=== PATIENT | male | born 1995 | race Caucasian/White ===

== ENCOUNTER 2018-07-20 07:06 | Day surgery (SDC) | payer OTHER ==
[2018-07-20] VITALS (11 sets, daily range): BP systolic 116–134; BP diastolic 59–82
[~2018-07-20] VITALS: Ht 177.8 cm; Wt 79.4 kg
[~2018-07-20 07:06] MED LIST: NKM
--- NOTE | 2018-07-20 08:03 | Pre-Procedure Note/Attestation ---
Pre-Procedure Note/Attestation Complete Prior to Procedure Planned Procedure: left Procedure Narrative: eswl rirs left Indications for Procedure Pre-Operative Diagnosis: left ureteral stone Attestation I attest that I discussed the nature of the procedure; its benefits; risks and complications; and alternatives (and the risks and benefits of such alternatives ), prior to the procedure, with the patient (or the patient's legal front office representative). I attest that, if there was a reasonable possibility of needing a blood transfusion, the patient (or the patient's legal front office representative) was given the [facility] standardized written summary, pursuant to the [place] Blood Safety Act ([place] Health and Safety Code # 1645, as amended). I attest that I re-evaluated the patient just prior to the surgery and that there has been no change in the patient's H&P, except as documented below: Tuan Wheeler MD Jul 20, 2018 08:03
--- NOTE | 2018-07-20 08:28 | Anethesia Preoperative Eval ---
Anesthesia Pre-op PMH/ROS General Date of Evaluation: Jul 20, 2018 Time of Evaluation: 08:27 Anesthesiologist: Taylor Hunt CRNA ASA Score: ASA 1 Mallampati Score Class I : Soft palate, uvula, fauces, pillars visible Class II: Soft palate, uvula, fauces visible Class III: Soft palate, base of uvula visible Class IV: Only hard plate visible Mallampati Classification: Class I Surgeon: Summer Diagnosis: Renal stones Surgical Procedure: LEFT ESWL, LEFT retrograde ureteral stent placement Anesthesia History: none Family History: no anesthesia problems Allergies: Coded Allergies: No Known Allergies (Unverified , 07/20/18) Medications: see eMAR Past Medical History Cardiovascular: Denies: HTN, CAD, CO, valve dz, arrhythmia, other Pulmonary: Denies: asthma, COPD, KD, other Gastrointestinal/Genitourinary: Reports: other - LEFT ureteral stones; Denies: GERD, CRI, ESRD Neurologic/Psychiatric: Denies: dementia, CVA, depression/anxiety, TIA, other Endocrine: Denies: DM, hypothyroidism, steroids, other HEENT: Denies: cataract (L), cataract (R), glaucoma, [place] (L), [place] (R), other Hematology/Immune: Denies: anemia, DVT, bleeding disorder, other Musculoskeletal/Integumentary: Denies: OA, RA, DJD, DDD, edema, other PMH Narrative: Healthy ASA 1 with ureteral stones PSxH Narrative: [place] teeth extraction Anesthesia Pre-op Phys. Exam Physician Exam Last Vital Signs Date Time Temp Pulse Resp B/P (MAP) Pulse Ox O2 Delivery O2 Flow Rate FiO2 07/20/18 07:42 97.9 48 18 116/59 96 Room Air 97.9 Constitutional: NAD Neurologic: CN 2-12 intact Cardiovascular: RRR Respiratory: CTA Gastrointestinal: S/NT/ND Airway Exam Mallampati Score: Class I MO: full Neck: no issues TMD: > 3 FB ROM: full Teeth: intact Dentures: no upper, no lower Anesthesia Pre-op A/P Risk Assessment & Plan Assessment: ASA 1 ok to proceed Plan: LMA GA Status Change Before Surgery: Taylor Harp CRNA Jul 20, 2018 08:28
[2018-07-20] MEDS ORDERED: Midazolam 2mg/2ml Inj ONE (08:31)
[2018-07-20] MEDS ORDERED: fentaNYL 100 mcg/2 mL IV ONE (08:31)
[2018-07-20] MEDS ORDERED: Lidocaine 1% MPF 10mg/ml 5ml ONE (08:31)
[2018-07-20] MEDS ORDERED: Propofol 200mg/20ml IV ONE (08:31)
[2018-07-20] MEDS ORDERED: LR 1000ml ONE (09:00)
[2018-07-20] MEDS ORDERED: NS Irrig 4000ml IRRIG ONE (09:00)
[2018-07-20] MEDS ORDERED: NS Irrig 1000ml ONE (09:00)
[2018-07-20] MEDS ORDERED: Sterile Water Irrig 1000ml IRRIG ONE (09:00)
[2018-07-20] MEDS: Iothalamate Meglumine 60% 30ML INJ ONE (09:25)
[2018-07-20] MEDS ORDERED: Glycopyrrolate 0.2mg/ml 1ml Vial ONE (09:25)
[2018-07-20] MEDS ORDERED: Dexamethasone 4mg/ml vial ONE (09:40)
[2018-07-20] MEDS ORDERED: Ketorolac 30mg Inj ONE (09:40)
[2018-07-20] MEDS ORDERED: oxyCODONE HCL/Acetaminophen 5/325mg ORAL PRN (10:00)
--- NOTE | 2018-07-20 10:04 | Brief Operative Note ---
Immediate Post Operative Note Operative Note Pre-op Diagnosis: left ureteral stone Procedure: eswl rirs stent placement Post-op Diagnosis: same Post-op Diagnosis: same as pre-op Surgeon: puja wheeler Anesthesia: general Specimen: none Complications: none Condition: stable Fluids: 500 Implant(s) used?: No Tuan Wheeler MD Jul 20, 2018 10:04
[2018-07-20] MEDS ORDERED: D5 1/2NS 1,000 ML IV SCH (10:15)
[2018-07-20] MEDS ORDERED: Tylenol #3 tab (300mg/30mg) ORAL PRN (10:15)
[2018-07-20] MEDS ORDERED: Norco 5mg/325mg tab ORAL PRN (10:15)
[2018-07-20] MEDS ORDERED: HYDROmorphone 1mg/ml Carpuject SUBQ PRN (10:15)
--- NOTE | 2018-07-20 10:36 | Immediate Post-Op Evaluation ---
Immediate Post-Op Evalulation Immediate Post-Op Evalulation Procedure: cystoscopy, LEFT retrograde ureteral stent placment under fluroscopy Date of Evaluation: Jul 20, 2018 Time of Evaluation: 10:09 IV Fluids: LR 1200 ML Estimated Blood Loss: minimal Urinary Output: in field Blood Pressure Systolic: 134 Blood Pressure Diastolic: 74 Pulse Rate: 69 Respiratory Rate: 18 O2 Sat by Pulse Oximetry: 100 Temperature (Fahrenheit): 97.7 Pain Score (1-10): 0 Nausea: No Vomiting: No Complications none Patient Status: awake, reacts, patent, extubated Hydration Status: adequate Drug: Cefazolin 1 gm Given Within 1 Hr of Incision: Yes Time Given: 09:15 Taylor Hunt CRNA Jul 20, 2018 10:36
--- NOTE | 2018-07-20 12:35 | 48 Hour Post Anesthesia Eval ---
Post Anesthesia Evaluation Procedure: cystoscopy, LEFT retrograde ureteral stent placment under fluroscopy Date of Evaluation: Jul 20, 2018 Time of Evaluation: 11:11 Blood Pressure Systolic: 120 0: 72 Pulse Rate: 42 Respiratory Rate: 16 Temperature (Fahrenheit): 97.5 O2 Sat by Pulse Oximetry: 99 Airway: patent Nausea: No Vomiting: No Pain Intensity: 0 Hydration Status: adequate Mental Status/LOC: patient returned to baseline Follow-up Care/Observations: per surgeon Post-Anesthesia Complications: none Follow-up care needed: ready to discharge Taylor Hunt CRNA Jul 20, 2018 12:35
--- NOTE | 2018-07-21 22:30 | Operative Note - Dictated ---
DATE OF OPERATION: 07/20/2018 PREOPERATIVE DIAGNOSIS: Left upper ureteral stone. POSTOPERATIVE DIAGNOSIS: Left upper ureteral stone. OPERATION: Cystoscopy, retrograde intrarenal surgery with semi-rigid ureteroscopy and flexible ureteroscopy, dilation of ureteral stricture. SURGEON: Tuan Wheeler M.D. ANESTHESIA: General. FINDINGS: Small stone and proximal ureteral stricture with severe hydronephrosis. INDICATIONS FOR SURGERY: The patient was complaining of left flank pain. CT urogram showed some moderate hydronephrosis and a 3 millimeter stone in the upper portion of the left ureter. Considering the fact the patient did not pass the stone for more than a week and significant hydronephrosis, decision was made to proceed with surgery as above. The patient understands all potential complications and signed a consent. He was brought to the operating room, placed in lithotomy position, prepped and draped in standard fashion under general anesthesia. Cystoscope was introduced into the bladder. Left ureter and bladder was examined and normal. Left ureter was cannulated. Guidewire was placed in the left kidney with some difficulties in the upper portion of the left ureter. A semi-rigid ureteroscope was introduced. A small stone was seen embedded into the stricture of the left ureter with a lot of periureteral inflammation. The stricture was dilated and flexible ureteroscope was then introduced into the kidney. Due to the size of hydronephrosis, despite thorough examination of the left kidney, we could not locate the small stone. The kidney was drained. Double-J stent 24 x 6 was placed and left indwelling with the Farrell catheter. The patient tolerated the procedure well. Sponge count and instrument count was correct . Tuan Wheeler M.D. DR: Nelli JOB#: [id number] CC:
== END 2018-07-20 11:55 | disposition home or self-care (01) ==
LOC: SUR 07:06
DX: N13.1 Hydronephrosis with ureteral stricture, not elsewhere classified (principal); N20.1 Calculus of ureter
CPT/HCPCS: 94003; 94150; J2250; J2405